=== PATIENT | male | born 2000 | race Caucasian/White ===

== ENCOUNTER 2020-07-16 10:05 | Emergency (ER) | payer MEDICAID ==
[~2020-07-16] VITALS: Ht 167.6 cm; Wt 109.0 kg
[2020-07-16 10:56] LABS: BASOPHILS % 0.5 % (0.0-2.0); EOSINOPHILS % 1.7 % (0.0-5.0); HEMATOCRIT. 42.2 % (42.0-52.0); HEMOGLOBIN. 14.3 g/dL (14.0-18.0); LYMPHOCYTES % 30.6 % (20.0-50.0); MEAN CORPUSCULAR HEMOGLOBIN 30.1 pg (28.0-32.0); MEAN CORPUSCULAR VOLUME 88.5 fL (80.0-94.0); MEAN PLATELET VOLUME 7.9 fl (7.4-10.4); MONOCYTES % 10.3 % (2.0-8.0); NEUTROPHILS % 56.9 % (40.0-76.0); PLATELET 221 x1000/uL (130-400); RED BLOOD CELL COUNT 4.77 mill/uL (4.7-6.1)
[2020-07-16 11:07] LABS: CHLORIDE 110 mEq/L (98-107)
[2020-07-16 12:00] VITALS: BP 121/78
== END 2020-07-16 12:03 | disposition home or self-care (01) ==
LOC: ER 10:05
DX: R06.00 Dyspnea, unspecified (principal)
CPT/HCPCS: 36415; 71045; 80053; 85025; 85379; 93005; 99285

== ENCOUNTER 2021-05-08 06:22 | Emergency (ER) | payer MEDICAID ==
[~2021-05-08] VITALS: Ht 167.6 cm; Wt 113.0 kg
[2021-05-08] MEDS ORDERED: KETOROLAC 30MG/ML VIAL IV STA (07:09)
[2021-05-08 07:38] LABS: BASOPHILS % 0.6 % (0.0-2.0); EOSINOPHILS % 1.9 % (0.0-5.0); HEMATOCRIT. 42.6 % (42.0-52.0); HEMOGLOBIN. 14.6 g/dL (14.0-18.0); LYMPHOCYTES % 29.2 % (20.0-50.0); MEAN CORPUSCULAR HEMOGLOBIN 29.7 pg (28.0-32.0); MEAN CORPUSCULAR VOLUME 86.7 fL (80.0-94.0); MEAN PLATELET VOLUME 8.1 fl (7.4-10.4); MONOCYTES % 11.4 % (2.0-8.0); NEUTROPHILS % 56.9 % (40.0-76.0); PLATELET 228 x1000/uL (130-400); RED BLOOD CELL COUNT 4.91 mill/uL (4.7-6.1)
[2021-05-08 07:42] LABS: CHLORIDE 110 mEq/L (98-107)
[2021-05-08] MEDS ORDERED: KETOROLAC 15MG/ML VIAL IV SCH (08:00)
[2021-05-08] MEDS ORDERED: KETOROLAC 30MG/ML VIAL IV SCH (08:00)
[2021-05-08 11:02] VITALS: BP 153/83
[2021-05-08] MEDS ORDERED: TOPUD PO (11:26)
== END 2021-05-08 12:18 | disposition home or self-care (01) ==
LOC: ER 06:22
DX: R07.89 Other chest pain (principal)
CPT/HCPCS: 36415; 71045; 80053; 83880; 84484; 85025; 93005; 96374; 99285; J1885

== ENCOUNTER 2021-12-16 01:22 | Emergency (ER) | payer SELFPAY ==
[~2021-12-16] VITALS: Ht 167.6 cm; Wt 125.3 kg
[~2021-12-16 01:22] MED LIST: TOPUD PO
[2021-12-16 01:35] VITALS: BP 156/98
[2021-12-16] MEDS ORDERED: KETOROLAC 30MG/ML VIAL IM ONE (02:15)
[2021-12-16 02:38] LABS: CLARITY URINE CLEAR (CLEAR); COLOR URINE YELLOW (YELLOW); KETONES URINE NEGATIVE (NEGATIVE); LEUKOCYTE ESTERASE URINE NEGATIVE (NEGATIVE); NITRITE URINE NEGATIVE (NEGATIVE); OCCULT BLOOD URINE 3+ (NEGATIVE); PH URINE 5.5 (4.5-8.0); PROTEIN URINE NEGATIVE (NEGATIVE); SPECIFIC GRAVITY URINE 1.024 (1.005-1.030); UROBILINOGEN URINE 0.2 E.U./dL (0.2-1.0)
[2021-12-16 03:03] LABS: BASOPHILS % 0.4 % (0.0-2.0); EOSINOPHILS % 1.1 % (0.0-5.0); HEMATOCRIT. 42.7 % (42.0-52.0); HEMOGLOBIN. 14.5 g/dL (14.0-18.0); LYMPHOCYTES % 28.3 % (20.0-50.0); MEAN CORPUSCULAR HEMOGLOBIN 29.5 pg (28.0-32.0); MEAN CORPUSCULAR VOLUME 86.9 fL (80.0-94.0); MEAN PLATELET VOLUME 8.1 fl (7.4-10.4); MONOCYTES % 10.9 % (2.0-8.0); NEUTROPHILS % 59.3 % (40.0-76.0); PLATELET 225 x1000/uL (130-400); RED BLOOD CELL COUNT 4.92 mill/uL (4.7-6.1); RED CELL DISTRIBUTION WIDTH 14.1 % (11.6-14.6)
[2021-12-16 03:08] LABS: CHLORIDE 107 mEq/L (98-107)
[2021-12-16] MEDS ORDERED: TAMS-11 MT (04:14)
[2021-12-16] MEDS ORDERED: IBUP-2029 MT (04:14)
== END 2021-12-16 04:35 | disposition home or self-care (01) ==
LOC: ER 01:22
DX: N23 Unspecified renal colic (principal)
CPT/HCPCS: 36415; 74176; 80053; 81003; 83690; 85025; 96372; 99284; J1885

== ENCOUNTER → 2025-02-17 | Emergency (ER) | payer MEDICAID ==
[~2025-02-17] VITALS: Ht 167.6 cm; Wt 147.0 kg
[~2025-02-17] MED LIST changes: +AMLO5TAB88 MT; +IBUP-1455 MT; +TAMS-54 MT
[2025-02-17 11:54] VITALS: O2SAT 99
[2025-02-17 13:05] LABS: BASOPHILS % 0.5 % (0.0-2.0); EOSINOPHILS % 0.8 % (0.0-5.0); HEMATOCRIT. 44.4 % (42.0-52.0); HEMOGLOBIN. 14.6 g/dL (14.0-18.0); LYMPHOCYTES % 21.9 % (20.0-50.0); MEAN PLATELET VOLUME 8.2 fl (7.4-10.4); MONOCYTES % 8.1 % (2.0-8.0); NEUTROPHILS % 68.7 % (40.0-76.0); PLATELET 239 x1000/uL (130-400); RED BLOOD CELL COUNT 5.21 mill/uL (4.7-6.1); RED CELL DISTRIBUTION WIDTH 14.7 % (11.6-14.6)
[2025-02-17 13:18] LABS: CREATININE 0.9 mg/dL (0.6-1.3); UREA NITROGEN BLOOD 8 mg/dL (9-23)
[2025-02-17 13:19] LABS: TROPONIN I HIGH SENSITIVITY < 4 ng/L (3.0-53)
[2025-02-17] MEDS: ASPIRIN 325MG TABLET PO ONE (13:43)
[2025-02-17] MEDS: AMLODIPINE 5MG TABLET PO ONE (13:43)
[2025-02-17 13:53] LABS: PROTEIN TOTAL 7.6 g/dL (6.0-8.3)
[2025-02-17 13:55] LABS: ASPARTATE AMINOTRANSFERASE 50 IU/L (<34); BILIRUBIN DIRECT 0.2 mg/dL (<=3.0); BILIRUBIN TOTAL 0.5 mg/dL (0.1-1.0)
[2025-02-17 15:36] LABS: INR 1.0
[2025-02-17 15:40] LABS: TROPONIN I HIGH SENSITIVITY < 4 ng/L (3.0-53)
[2025-02-17 17:00] VITALS: BP 166/78; PULSE 95; RESP 12; TEMP 36.7; O2SAT 95
== END ==
LOC: ER 11:48 → EDBEDREQ 12:18 → CANBEDREQ 17:09
DX: I10 Essential (primary) hypertension (principal); R07.89 Other chest pain
CPT/HCPCS: 36415; 71045; 80048; 80076; 83880; 84484; 85025; 93005; 99285

== ENCOUNTER → 2025-02-18 | Emergency (ER) | payer MEDICAID ==
[~2025-02-18] VITALS: Ht 167.6 cm; Wt 110.0 kg
[2025-02-18 11:07] VITALS: O2SAT 99
[2025-02-18 11:23] VITALS: BP 143/84; PULSE 94; RESP 18; TEMP 37.1; O2SAT 100
[2025-02-18 15:47] LABS: INFLUENZA TYPE A Presumptive Negative (Pres. Neg.); INFLUENZA TYPE B Presumptive Negative (Pres. Neg.)
== END ==
LOC: ER 10:56
DX: R07.9 Chest pain, unspecified (principal); E66.01 Morbid (severe) obesity due to excess calories; I10 Essential (primary) hypertension; Z20.822 Contact with and (suspected) exposure to COVID-19
CPT/HCPCS: 71045; 87426; 87804; 99284